=== PATIENT | male | born 1985 | race Two or more races ===

== ENCOUNTER → 2017-11-09 | Outpatient (CLI) | payer OTHER ==
[2017-11-10 12:20] LABS: RUBEOLA (MEASLES) IGG >300.0 AU/mL (Immune >29.9)
== END | disposition home or self-care (01) ==
LOC: EMPHLTH 09:20
PROVIDERS: ATTEND Internal Medicine
DX: Z02.1 Encounter for pre-employment examination (principal)
CPT/HCPCS: 86706; 86735; 86762; 86765; 86787

== ENCOUNTER → 2017-11-22 | Outpatient (CLI) | payer OTHER | END | disposition home or self-care (01) | LOC: EMPHLTH 12:11 | PROVIDERS: ATTEND Internal Medicine | DX: R76.11 Nonspecific reaction to tuberculin skin test without active tuberculosis (principal) ==

== ENCOUNTER 2018-10-01 22:54 | Emergency (ER) | payer OTHER ==
[~2018-10-01] VITALS: Ht 182.9 cm; Wt 113.6 kg
[2018-10-01 23:08] VITALS: BP 139/92
[2018-10-02] MEDS ORDERED: CEPHALEXIN MONOHYDRATE 500 MG CAPSULE PO ONE
== END 2018-10-02 00:13 | disposition home or self-care (01) ==
LOC: EMS 22:55
DX: L03.032 Cellulitis of left toe (principal)

== ENCOUNTER 2019-07-27 22:31 | Emergency (ER) | payer OTHER ==
[~2019-07-27] VITALS: Ht 365.8 cm; Wt 118.0 kg
[2019-07-27] MEDS ORDERED: ACETAMINOPHEN 325 MG TABLET PO ONE (23:15)
[2019-07-27] MEDS ORDERED: LIDOCAINE 5% TRANSDERMAL PATCH TD ONE (23:15)
[2019-07-27] MEDS ORDERED: IBUPROFEN 400 MG TABLET PO ONE (23:15)
[2019-07-28 00:05] VITALS: BP 140/80
== END 2019-07-28 00:40 | disposition home or self-care (01) ==
LOC: EMS 22:32
DX: S50.02XA Contusion of left elbow, initial encounter (principal); W18.39XA Other fall on same level, initial encounter; Y93.89 Activity, other specified; Y92.89 Other specified places as the place of occurrence of the external cause; Y99.8 Other external cause status

== ENCOUNTER 2019-08-08 09:57 | Emergency (ER) | payer OTHER ==
[~2019-08-08] VITALS: Ht 182.9 cm; Wt 113.6 kg
[2019-08-08 11:10] VITALS: BP 134/82
== END 2019-08-08 11:13 | disposition home or self-care (01) ==
LOC: EEVIPCON 09:58 → EMS 09:58
DX: J20.9 Acute bronchitis, unspecified (principal)

== ENCOUNTER 2019-10-06 04:33 | Emergency (ER) | payer OTHER ==
[~2019-10-06] VITALS: Ht 182.9 cm; Wt 122.7 kg
[2019-10-06] MEDS ORDERED: ONDANSETRON HCL 4 MG TABLET PO ONE (05:00)
[2019-10-06 05:15] LABS: BASOPHILS % (AUTO) 0.8 % (0.0-2.0); EOSINOPHILS % (AUTO) 2.6 % (1.0-6.0); HEMATOCRIT 44.8 % (41-53); HEMOGLOBIN 15.4 g/dL (13.5-17.5); LYMPHOCYTES # (AUTO) 2.6 K/uL (1.0-4.8); LYMPHOCYTES % (AUTO) 33.5 % (22.0-44.0); MEAN CORPUSCULAR HEMOGLOBIN 30.8 pg (26.0-34.0); MEAN CORPUSCULAR HGB CONC 34.4 G/dL (31.0-37.0); MEAN CORPUSCULAR VOLUME 90 fL (80-100); MONOCYTES # (AUTO) 0.6 K/uL (0.1-1.0); MONOCYTES % (AUTO) 7.7 % (2.0-9.0); NEUTROPHILS # (AUTO) 4.3 K/uL (1.8-7.7); NEUTROPHILS % (AUTO) 55.4 % (40.0-70.0); PLATELET COUNT (AUTO) 254 K/uL (150-450); RED BLOOD CELL COUNT(AUTO) 4.99 MIL/uL (4.50-5.90); RED CELL DISTRIBUTION WIDTH 13.3 % (11.5-14.5)
[2019-10-06 05:36] LABS: ALANINE AMINOTRANSFERASE 32 U/L (12-78); ALBUMIN 3.9 g/dL (3.4-5.0); ALKALINE PHOSPHATASE 61 U/L (46-116); ASPARTATE AMINOTRANSFERASE 13 U/L (15-37); BILIRUBIN,TOTAL 0.1 mg/dL (0.1-1.0); CARBON DIOXIDE 29 mmol/L (22-29); CHLORIDE 98 mmol/L (98-107); CREATININE 1.06 mg/dL (0.60-1.30); GLOMERULAR FILTR. RATE CALC > 60 mL/min (>60); GLUCOSE,RANDOM 115 mg/dL (70-110); LIPASE 102 U/L (73-393); POTASSIUM 3.4 mmol/L (3.5-5.1); SODIUM SERUM 139 mmol/L (136-145); TOTAL PROTEIN, SERUM 7.2 g/dL (6.4-8.2); UREA NITROGEN, BLOOD 18 mg/dL (7-18)
[2019-10-06 05:37] LABS: ANION GAP 12 mmol/L (8-16)
[2019-10-06] MEDS ORDERED: HydrOXYzine HCL 25 MG TABLET PO ONE (05:45)
[2019-10-06 05:47] VITALS: BP 155/96
== END 2019-10-06 05:59 | disposition home or self-care (01) ==
LOC: EMS 04:33
DX: R11.2 Nausea with vomiting, unspecified (principal); R09.89 Other specified symptoms and signs involving the circulatory and respiratory systems
CPT/HCPCS: 36415; 71045; 80053; 83690; 84484; 85025; 93005; 99285; Q0162

== ENCOUNTER 2019-10-12 22:43 | Emergency (ER) | payer OTHER ==
[~2019-10-12] VITALS: Ht 182.9 cm; Wt 118.2 kg
[2019-10-12] MEDS ORDERED: SODIUM CHLORIDE 0.9% 1,000 ML IV ONE (23:45)
[2019-10-12 23:59] LABS: BASOPHILS % (AUTO) 0.8 % (0.0-2.0); HEMATOCRIT 44.7 % (41-53); HEMOGLOBIN 15.1 g/dL (13.5-17.5); LYMPHOCYTES % (AUTO) 42.8 % (22.0-44.0); MEAN CORPUSCULAR HEMOGLOBIN 30.3 pg (26.0-34.0); MEAN CORPUSCULAR HGB CONC 33.7 G/dL (31.0-37.0); MEAN CORPUSCULAR VOLUME 90 fL (80-100); MONOCYTES # (AUTO) 0.5 K/uL (0.1-1.0); MONOCYTES % (AUTO) 6.4 % (2.0-9.0); NEUTROPHILS # (AUTO) 3.4 K/uL (1.8-7.7); PLATELET COUNT (AUTO) 274 K/uL (150-450); RED BLOOD CELL COUNT(AUTO) 4.98 MIL/uL (4.50-5.90); RED CELL DISTRIBUTION WIDTH 13.1 % (11.5-14.5)
[2019-10-13] MEDS ORDERED: SODIUM CHLORIDE 0.9% 100 ML ONE ×2 (00:07→01:17)
[2019-10-13] MEDS ORDERED: IOVERSOL 350 MG/ML 100 ML VIAL ONE (00:07)
[2019-10-13 00:11] LABS: ANION GAP 8 mmol/L (8-16); CALCIUM, TOTAL 8.9 mg/dL (8.8-10.5); CARBON DIOXIDE 29 mmol/L (22-29); CHLORIDE 104 mmol/L (98-107); CREATININE 1.06 mg/dL (0.60-1.30); GLOMERULAR FILTR. RATE CALC > 60 mL/min (>60); GLUCOSE,RANDOM 93 mg/dL (70-110); POTASSIUM 3.5 mmol/L (3.5-5.1); SODIUM SERUM 141 mmol/L (136-145); UREA NITROGEN, BLOOD 24 mg/dL (7-18)
[2019-10-13 02:00] VITALS: BP 128/74
== END 2019-10-13 02:45 | disposition home or self-care (01) ==
LOC: EMS 22:43
DX: R09.89 Other specified symptoms and signs involving the circulatory and respiratory systems (principal)
CPT/HCPCS: 36415; 70491; 80048; 85025; 99285; J7030; J7050; Q9967

== ENCOUNTER 2019-12-06 19:59 | Emergency (ER) | payer OTHER ==
[~2019-12-06] VITALS: Ht 182.9 cm; Wt 122.7 kg
[2019-12-07] MEDS ORDERED: HYDROCODONE/ACETAMINOPHEN 5-325 MG TABLET PO ONE (00:45)
[2019-12-07 00:48] VITALS: BP 132/78
== END 2019-12-07 01:00 | disposition home or self-care (01) ==
LOC: EMS 19:59
DX: S62.325A Displaced fracture of shaft of fourth metacarpal bone, left hand, initial encounter for closed fracture (principal); Y04.0XXA Assault by unarmed brawl or fight, initial encounter; Y93.89 Activity, other specified; Y92.89 Other specified places as the place of occurrence of the external cause; Y99.0 Civilian activity done for income or pay

== ENCOUNTER 2019-12-14 22:34 | Emergency (ER) | payer OTHER ==
[~2019-12-14] VITALS: Ht 182.9 cm; Wt 122.7 kg
[2019-12-14 23:48] VITALS: BP 150/79
[2019-12-15] MEDS ORDERED: NYSTATIN 30 GM CREAM TP ONE
== END 2019-12-15 01:54 | disposition home or self-care (01) ==
LOC: EMS 22:35
DX: M79.642 Pain in left hand (principal); Z46.89 Encounter for fitting and adjustment of other specified devices

== ENCOUNTER 2020-02-21 15:02 | Emergency (ER) | payer OTHER ==
[~2020-02-21] VITALS: Ht 182.9 cm; Wt 118.6 kg
[2020-02-21 17:23] VITALS: BP 109/74
== END 2020-02-21 15:39 | disposition home or self-care (01) ==
LOC: EMS 15:06
DX: Z03.818 Encounter for observation for suspected exposure to other biological agents ruled out (principal)
CPT/HCPCS: 99283; U0003

== ENCOUNTER 2020-11-18 19:31 | Emergency (ER) | payer OTHER ==
[~2020-11-18] VITALS: Ht 182.9 cm; Wt 123.2 kg
[2020-11-18] MEDS ORDERED: PERTUSS(ACELL),DIPH,TET VAC/PF 0.5 ML SYRINGE IM. ONE (20:45)
[2020-11-18 20:50] VITALS: BP 135/77
== END 2020-11-18 21:30 | disposition home or self-care (01) ==
LOC: EMS 19:31
DX: S01.111A Laceration without foreign body of right eyelid and periocular area, initial encounter (principal); W21.03XA Struck by baseball, initial encounter; Y93.89 Activity, other specified; Y92.89 Other specified places as the place of occurrence of the external cause; Y99.8 Other external cause status
CPT/HCPCS: 90471; 90715; 99283

== ENCOUNTER 2021-01-25 10:12 | Emergency (ER) | payer OTHER ==
[~2021-01-25] VITALS: Ht 182.9 cm; Wt 120.5 kg
[2021-01-25 10:55] LABS: BASOPHILS % (AUTO) 0.8 % (0.0-2.0); EOSINOPHILS % (AUTO) 2.5 % (1.0-6.0); HEMATOCRIT 43.7 % (41-53); HEMOGLOBIN 14.8 g/dL (13.5-17.5); LYMPHOCYTES # (AUTO) 2.4 K/uL (1.0-4.8); LYMPHOCYTES % (AUTO) 43.7 % (22.0-44.0); MEAN CORPUSCULAR HEMOGLOBIN 30.9 pg (26.0-34.0); MEAN CORPUSCULAR HGB CONC 33.9 G/dL (31.0-37.0); MEAN CORPUSCULAR VOLUME 91 fL (80-100); MONOCYTES # (AUTO) 0.4 K/uL (0.1-1.0); MONOCYTES % (AUTO) 8.2 % (2.0-9.0); NEUTROPHILS # (AUTO) 2.5 K/uL (1.8-7.7); NEUTROPHILS % (AUTO) 44.8 % (40.0-70.0); PLATELET COUNT (AUTO) 259 K/uL (150-450); RED BLOOD CELL COUNT(AUTO) 4.79 MIL/uL (4.50-5.90); RED CELL DISTRIBUTION WIDTH 13.5 % (11.5-14.5)
[2021-01-25 11:04] LABS: ANION GAP 10 mmol/L (8-16); CALCIUM, TOTAL 8.6 mg/dL (8.8-10.5); CARBON DIOXIDE 27 mmol/L (22-29); CHLORIDE 104 mmol/L (98-107); CREATININE 1.01 mg/dL (0.60-1.30); GLOMERULAR FILTR. RATE CALC > 60 mL/min (>60); GLUCOSE,RANDOM 106 mg/dL (70-110); POTASSIUM 3.9 mmol/L (3.5-5.1); SODIUM SERUM 141 mmol/L (136-145); UREA NITROGEN, BLOOD 14 mg/dL (7-18)
[2021-01-25 11:09] LABS: ALANINE AMINOTRANSFERASE 41 U/L (12-78); ALBUMIN 3.8 g/dL (3.4-5.0); ALKALINE PHOSPHATASE 57 U/L (46-116); ASPARTATE AMINOTRANSFERASE 26 U/L (15-37); BILIRUBIN,TOTAL 0.3 mg/dL (0.1-1.0); TOTAL PROTEIN, SERUM 7.2 g/dL (6.4-8.2)
[2021-01-25 11:28] VITALS: BP 128/95
== END 2021-01-25 12:10 | disposition home or self-care (01) ==
LOC: EMS 10:24
DX: K21.9 Gastro-esophageal reflux disease without esophagitis (principal)
CPT/HCPCS: 71045; 80053; 84484; 85025; 93005; 99285; 36415-L1; 36415-TC

== ENCOUNTER 2021-04-09 17:15 | Emergency (ER) | payer OTHER ==
[~2021-04-09] VITALS: Ht 182.9 cm; Wt 122.7 kg
[2021-04-09] MEDS ORDERED: MAGN250T9 PO (17:33)
[2021-04-09] MEDS ORDERED: ZINC220C14 PO (17:33)
[2021-04-09] MEDS ORDERED: CHOL400T56 PO (17:33)
[2021-04-09] MEDS ORDERED: ASCO500 PO (17:33)
[2021-04-09] MEDS ORDERED: BLUE500T PO (17:33)
[2021-04-09 18:32] LABS: BASOPHILS % (AUTO) 0.8 % (0.0-2.0); HEMATOCRIT 45.9 % (41-53); HEMOGLOBIN 15.5 g/dL (13.5-17.5); LYMPHOCYTES # (AUTO) 2.2 K/uL (1.0-4.8); LYMPHOCYTES % (AUTO) 35.6 % (22.0-44.0); MEAN CORPUSCULAR HEMOGLOBIN 30.6 pg (26.0-34.0); MEAN CORPUSCULAR HGB CONC 33.7 G/dL (31.0-37.0); MEAN CORPUSCULAR VOLUME 91 fL (80-100); MONOCYTES # (AUTO) 0.5 K/uL (0.1-1.0); MONOCYTES % (AUTO) 8.7 % (2.0-9.0); NEUTROPHILS # (AUTO) 3.2 K/uL (1.8-7.7); NEUTROPHILS % (AUTO) 51.9 % (40.0-70.0); PLATELET COUNT (AUTO) 301 K/uL (150-450); RED BLOOD CELL COUNT(AUTO) 5.05 MIL/uL (4.50-5.90); RED CELL DISTRIBUTION WIDTH 13.1 % (11.5-14.5)
[2021-04-09 18:41] VITALS: BP 136/86
[2021-04-09 19:05] LABS: ANION GAP 6 mmol/L (8-16); CALCIUM, TOTAL 9.1 mg/dL (8.8-10.5); CARBON DIOXIDE 28 mmol/L (22-29); CHLORIDE 106 mmol/L (98-107); CREATININE 1.12 mg/dL (0.60-1.30); GLOMERULAR FILTR. RATE CALC > 60 mL/min (>60); GLUCOSE,RANDOM 93 mg/dL (70-110); POTASSIUM 3.9 mmol/L (3.5-5.1); SODIUM SERUM 140 mmol/L (136-145); UREA NITROGEN, BLOOD 15 mg/dL (7-18)
[2021-04-09 19:12] LABS: ALANINE AMINOTRANSFERASE 36 U/L (12-78); ALBUMIN 4.2 g/dL (3.4-5.0); ALKALINE PHOSPHATASE 63 U/L (46-116); ASPARTATE AMINOTRANSFERASE 20 U/L (15-37); BILIRUBIN,TOTAL 0.3 mg/dL (0.1-1.0)
== END 2021-04-09 20:32 | disposition home or self-care (01) ==
LOC: EMS 17:19
DX: R51.9 Headache, unspecified (principal); Z79.899 Other long term (current) drug therapy
CPT/HCPCS: 70450; 80053; 85025; 99284

== ENCOUNTER → 2021-10-29 | Outpatient (CLI) | payer OTHER ==
[~2021-10-29] MED LIST: ASCO500 PO; BLUE500T PO; CHOL400T56 PO; MAGN250T9 PO; ZINC220C14 PO
== END | disposition home or self-care (01) ==
LOC: RADMN 13:21
PROVIDERS: ATTEND Internal Medicine
DX: R76.11 Nonspecific reaction to tuberculin skin test without active tuberculosis (principal)
CPT/HCPCS: 71045

== ENCOUNTER 2021-11-27 14:37 | Emergency (ER) | payer OTHER ==
[~2021-11-27] VITALS: Ht 182.9 cm; Wt 116.8 kg
[2021-11-27 14:43] VITALS: BP 143/80
[2021-11-27] MEDS ORDERED: POVIDONE-IODINE 10% 15 ML SOLUTION UD TP ONE (15:00)
[2021-11-27] MEDS ORDERED: PERTUSS(ACELL),DIPH,TET VAC/PF 0.5 ML SYRINGE IM. ONE (15:00)
[2021-11-27] MEDS ORDERED: AMOX TR/POT CLAV 875 MG/125 MG TABLET PO ONE (15:00)
[2021-11-27] MEDS ORDERED: AMOX1TAB16 PO (16:03)
[2021-11-28 08:06] LABS: HEPATITIS C AB (EIA) <0.1 s/co ratio (0.0-0.9)
== END 2021-11-27 16:00 | disposition home or self-care (01) ==
LOC: EMS 14:37
DX: S61.250A Open bite of right index finger without damage to nail, initial encounter (principal); W50.3XXA Accidental bite by another person, initial encounter; Y93.89 Activity, other specified; Y92.238 Other place in hospital as the place of occurrence of the external cause; Y99.0 Civilian activity done for income or pay
CPT/HCPCS: 84460; 86706; 86803; 87340; 90471; 90715; 99283

== ENCOUNTER → 2022-01-08 | Outpatient (CLI) | payer OTHER ==
[~2022-01-08] MED LIST changes: +AMOX1TAB16 PO
[2022-01-09 08:06] LABS: HEPATITIS C AB (EIA) 0.1 s/co ratio (0.0-0.9)
== END | disposition home or self-care (01) ==
LOC: LABMN 14:09
PROVIDERS: ATTEND Internal Medicine
DX: Z77.21 Contact with and (suspected) exposure to potentially hazardous body fluids (principal)
CPT/HCPCS: 84460; 86706; 86803; 87340

== ENCOUNTER 2022-01-22 22:47 | Emergency (ER) | payer OTHER ==
[~2022-01-22] VITALS: Ht 182.9 cm; Wt 113.6 kg
[2022-01-22 22:57] VITALS: BP 125/76
[2022-01-23 00:13] LABS: BASOPHILS % (AUTO) 0.9 % (0.0-2.0); HEMATOCRIT 42.4 % (41-53); HEMOGLOBIN 14.6 g/dL (13.5-17.5); LYMPHOCYTES # (AUTO) 2.8 K/uL (1.0-4.8); LYMPHOCYTES % (AUTO) 49.5 % (22.0-44.0); MEAN CORPUSCULAR HEMOGLOBIN 31.1 pg (26.0-34.0); MEAN CORPUSCULAR HGB CONC 34.5 G/dL (31.0-37.0); MEAN CORPUSCULAR VOLUME 90 fL (80-100); MONOCYTES # (AUTO) 0.5 K/uL (0.1-1.0); MONOCYTES % (AUTO) 8.2 % (2.0-9.0); NEUTROPHILS # (AUTO) 2.1 K/uL (1.8-7.7); NEUTROPHILS % (AUTO) 37.4 % (40.0-70.0); PLATELET COUNT (AUTO) 256 K/uL (150-450); RED BLOOD CELL COUNT(AUTO) 4.69 MIL/uL (4.50-5.90); RED CELL DISTRIBUTION WIDTH 13.1 % (11.5-14.5)
[2022-01-23 00:20] LABS: ANION GAP 5 mmol/L (8-16); CALCIUM, TOTAL 8.8 mg/dL (8.8-10.5); CARBON DIOXIDE 30 mmol/L (22-29); CHLORIDE 102 mmol/L (98-107); CREATININE 1.07 mg/dL (0.60-1.30); GLOMERULAR FILTR. RATE CALC > 60 mL/min (>60); GLUCOSE,RANDOM 99 mg/dL (70-110); SODIUM SERUM 137 mmol/L (136-145); UREA NITROGEN, BLOOD 22 mg/dL (7-18)
[2022-01-23 00:26] LABS: ALANINE AMINOTRANSFERASE 39 U/L (12-78); ALKALINE PHOSPHATASE 60 U/L (46-116); ASPARTATE AMINOTRANSFERASE 31 U/L (15-37); BILIRUBIN,TOTAL 0.3 mg/dL (0.1-1.0)
[2022-01-23] MEDS ORDERED: LIDO700A15 TP (02:07)
[2022-01-23] MEDS ORDERED: IBUP-2070 PO (02:07)
== END 2022-01-23 02:10 | disposition home or self-care (01) ==
LOC: EMS 22:59
DX: R07.89 Other chest pain (principal); Z79.899 Other long term (current) drug therapy
CPT/HCPCS: 71101; 80053; 85025; 99284

== ENCOUNTER → 2022-01-27 | Outpatient (CLI) | payer OTHER ==
[~2022-01-27] MED LIST changes: +IBUP-2070 PO; +LIDO700A15 TP
[2022-01-28 11:07] LABS: HEPATITIS A ANTIBODY TOTAL Positive (Negative); HEPATITIS C AB (EIA) 0.2 s/co ratio (0.0-0.9); HIV 1-2 SCREEN 4TH GEN W/RFLX Non Reactive (Non Reactive)
== END | disposition home or self-care (01) ==
LOC: LABMN 14:34
PROVIDERS: ATTEND Internal Medicine
DX: Z77.21 Contact with and (suspected) exposure to potentially hazardous body fluids (principal)
CPT/HCPCS: 86704; 86708; 86803; 87340; 87389

== ENCOUNTER 2022-03-28 15:17 | Emergency (ER) | payer OTHER ==
[~2022-03-28] VITALS: Ht 15.2 cm; Wt 102.8 kg
[2022-03-28 15:18] VITALS: BP 133/84
[2022-03-28] MEDS ORDERED: CYAN100T45 PO (15:24)
[2022-03-28] MEDS ORDERED: ACETAMINOPHEN 325 MG TABLET PO ONE (15:45)
[2022-03-28] MEDS ORDERED: FAMOTIDINE 20 MG TABLET PO ONE (15:45)
== END 2022-03-28 17:23 | disposition home or self-care (01) ==
LOC: EMS 15:17
DX: R07.89 Other chest pain (principal); K21.9 Gastro-esophageal reflux disease without esophagitis
CPT/HCPCS: 71045; 93005; 99283; 99284

== ENCOUNTER 2023-01-27 22:39 | Emergency (ER) | payer OTHER ==
[~2023-01-27] VITALS: Ht 182.9 cm; Wt 120.5 kg
[~2023-01-27 22:39] MED LIST changes: -AMOX1TAB16 PO; -BLUE500T PO; +CYAN100T45 PO; +IBUP-1492 PO; -IBUP-2070 PO; -LIDO700A15 TP; -ZINC220C14 PO; +ZINC50CA3 PO
[2023-01-27 23:01] VITALS: BP 146/91; PULSE 97; RESP 16; TEMP 98.4
[2023-01-27] MEDS ORDERED: IBUP-1493 PO (23:28)
[2023-01-27] MEDS ORDERED: KETOROLAC TROMETHAMINE 60 MG/2 ML VIAL IM ONE (23:30)
[2023-01-27] MEDS ORDERED: KETOROLAC TROMETHAMINE 30 MG/ML VIAL IM ONE (23:30)
== END 2023-01-27 23:45 | disposition home or self-care (01) ==
LOC: EMS 22:40
DX: S56.912A Strain of unspecified muscles, fascia and tendons at forearm level, left arm, initial encounter (principal); K21.9 Gastro-esophageal reflux disease without esophagitis; X58.XXXA Exposure to other specified factors, initial encounter; Y93.89 Activity, other specified; Y92.89 Other specified places as the place of occurrence of the external cause; Y99.8 Other external cause status
CPT/HCPCS: 99283; 96372; J1885

== ENCOUNTER → 2023-09-09 | Outpatient (CLI) | payer OTHER ==
[~2023-09-09] MED LIST changes: +IBUP-1493 PO
[2023-09-09 09:38] LABS: BASOPHILS % (AUTO) 1.1 % (0.0-2.0); EOSINOPHILS % (AUTO) 3.3 % (1.0-6.0); HEMATOCRIT 46.9 % (41-53); HEMOGLOBIN 15.9 g/dL (13.5-17.5); LYMPHOCYTES # (AUTO) 2.3 K/uL (1.0-4.8); LYMPHOCYTES % (AUTO) 41.7 % (22.0-44.0); MEAN CORPUSCULAR HEMOGLOBIN 30.6 pg (26.0-34.0); MEAN CORPUSCULAR HGB CONC 33.9 G/dL (31.0-37.0); MEAN CORPUSCULAR VOLUME 90 fL (80-100); MONOCYTES # (AUTO) 0.4 K/uL (0.1-1.0); MONOCYTES % (AUTO) 7.4 % (2.0-9.0); NEUTROPHILS # (AUTO) 2.6 K/uL (1.8-7.7); NEUTROPHILS % (AUTO) 46.5 % (40.0-70.0); PLATELET COUNT (AUTO) 290 K/uL (150-450); RED BLOOD CELL COUNT(AUTO) 5.21 MIL/uL (4.50-5.90); RED CELL DISTRIBUTION WIDTH 13.2 % (11.5-14.5); WHITE BLOOD COUNT (AUTO) 5.6 K/uL (4.5-11.0)
[2023-09-09 09:46] LABS: HEMOGLOBIN A1C 5.3 % (3.8-5.6)
[2023-09-09 10:09] LABS: ALANINE AMINOTRANSFERASE 38 U/L (12-78); ALBUMIN 4.1 g/dL (3.4-5.0); ALKALINE PHOSPHATASE 55 U/L (46-116); ANION GAP 8 mmol/L (8-16); ASPARTATE AMINOTRANSFERASE 27 U/L (15-37); BILIRUBIN,TOTAL 0.5 mg/dL (0.1-1.0); CALCIUM, TOTAL 9.2 mg/dL (8.8-10.5); CARBON DIOXIDE 29 mmol/L (22-29); CHLORIDE 103 mmol/L (98-107); CHOL/HDL RATIO 4.4 (4.2-7.3); CHOLESTEROL 202 mg/dL (131-200); CREATININE 0.99 mg/dL (0.60-1.30); GLOMERULAR FILTR. RATE CALC > 60 mL/min (>60); GLUCOSE,RANDOM 100 mg/dL (70-110); HDL CHOLESTEROL 46 mg/dL (40-60); LDL CHOL (CALC.) 129 mg/dL (0-130); POTASSIUM 4.1 mmol/L (3.5-5.1); SODIUM SERUM 140 mmol/L (136-145); THYROID STIMULATING HORMONE 1.73 uIU/mL (0.36-3.74); TOTAL PROTEIN, SERUM 7.4 g/dL (6.4-8.2); TRIGLYCERIDES 136 mg/dL (15-150); UREA NITROGEN, BLOOD 18 mg/dL (7-18)
[2023-09-09 10:12] LABS: VITAMIN B12 LEVEL 1083 pg/mL (211-911); VITAMIN D,TOTAL (25-0H) 39 ng/mL (30-100)
[2023-09-09 10:37] LABS: FOLATE SERUM > 24.0 ng/mL (5.4-)
== END | disposition home or self-care (01) ==
LOC: LABMN 09:03
PROVIDERS: ATTEND Internal Medicine Geriatric Medicine
DX: Z00.00 Encounter for general adult medical examination without abnormal findings (principal)
CPT/HCPCS: 80053; 80061; 82306; 82607; 82746; 83036; 84443; 85025

== ENCOUNTER 2023-10-29 20:30 | Emergency (ER) | payer OTHER ==
[~2023-10-29] VITALS: Ht 182.9 cm; Wt 123.6 kg
[2023-10-29 22:15] VITALS: BP 132/74; PULSE 79; RESP 17; TEMP 97.3
== END 2023-10-29 22:42 | disposition home or self-care (01) ==
LOC: EMS 20:41
DX: S80.02XA Contusion of left knee, initial encounter (principal); X58.XXXA Exposure to other specified factors, initial encounter; Y93.02 Activity, running; Y92.89 Other specified places as the place of occurrence of the external cause; Y99.8 Other external cause status
CPT/HCPCS: 99281; Z7502

== ENCOUNTER 2024-07-27 21:07 | Emergency (ER) | payer OTHER ==
[~2024-07-27] VITALS: Ht 185.4 cm; Wt 86.4 kg
[2024-07-27 21:59] VITALS: BP 133/82; PULSE 82; RESP 18; TEMP 98; O2SAT 99
== END 2024-07-27 23:23 | disposition left against medical advice (07) ==
LOC: EMS 21:09
DX: M79.641 Pain in right hand (principal); Z53.21 Procedure and treatment not carried out due to patient leaving prior to being seen by health care provider
CPT/HCPCS: 73130-TC

== ENCOUNTER 2024-09-19 06:59 | Day surgery (SDC) | payer OTHER ==
[~2024-09-19] VITALS: Ht 182.9 cm; Wt 120.5 kg
[~2024-09-19 06:59] MED LIST changes: +GLYCOPYRROLATE 0.2 MG/ML VIAL ONE; -IBUP-1492 PO; -IBUP-1493 PO; +LIDOCAINE/PF 2% 5 ML SYRINGE IVP ONE; +PROPOFOL 1% 20 ML VIAL IVP ONE; +SODIUM CHLORIDE 0.9% 1,000 ML ONE
[2024-09-19] MEDS: SODIUM CHLORIDE 0.9% 1,000 ML IV ONE (07:28)
== END 2024-09-19 11:00 | disposition home or self-care (01) ==
LOC: SURGERY 06:59
PROVIDERS: ATTEND Internal Medicine
DX: R12 Heartburn (principal); K29.50 Unspecified chronic gastritis without bleeding
CPT/HCPCS: 43239; 88305; J2704; J3490 ×2; J7030

== ENCOUNTER → 2024-11-23 | Outpatient (CLI) | payer OTHER ==
[~2024-11-23] MED LIST changes: -GLYCOPYRROLATE 0.2 MG/ML VIAL ONE; -LIDOCAINE/PF 2% 5 ML SYRINGE IVP ONE; -PROPOFOL 1% 20 ML VIAL IVP ONE; -SODIUM CHLORIDE 0.9% 1,000 ML ONE
[2024-11-23 19:51] LABS: BASOPHILS % (AUTO) 0.9 % (0.0-2.0); HEMATOCRIT 43.7 % (41-53); LYMPHOCYTES # (AUTO) 2.4 K/uL (1.0-4.8); LYMPHOCYTES % (AUTO) 41.6 % (22.0-44.0); MEAN CORPUSCULAR HEMOGLOBIN 30.7 pg (26.0-34.0); MEAN CORPUSCULAR HGB CONC 34.4 G/dL (31.0-37.0); MEAN CORPUSCULAR VOLUME 89 fL (80-100); MONOCYTES # (AUTO) 0.5 K/uL (0.1-1.0); MONOCYTES % (AUTO) 8.6 % (2.0-9.0); NEUTROPHILS # (AUTO) 2.7 K/uL (1.8-7.7); NEUTROPHILS % (AUTO) 45.9 % (40.0-70.0); PLATELET COUNT (AUTO) 285 K/uL (150-450); RED BLOOD CELL COUNT(AUTO) 4.89 MIL/uL (4.50-5.90); RED CELL DISTRIBUTION WIDTH 13.3 % (11.5-14.5); WHITE BLOOD COUNT (AUTO) 5.9 K/uL (4.5-11.0)
[2024-11-23 20:03] LABS: ALANINE AMINOTRANSFERASE 49 U/L (12-78); ALBUMIN 3.9 g/dL (3.4-5.0); ALKALINE PHOSPHATASE 58 U/L (46-116); ANION GAP 5 mmol/L (8-16); ASPARTATE AMINOTRANSFERASE 32 U/L (15-37); BILIRUBIN,TOTAL 0.4 mg/dL (0.1-1.0); CALCIUM, TOTAL 8.9 mg/dL (8.8-10.5); CARBON DIOXIDE 31 mmol/L (22-29); CHLORIDE 105 mmol/L (98-107); CREATININE 1.06 mg/dL (0.60-1.30); GLOMERULAR FILTR. RATE CALC > 60 mL/min (>60); GLUCOSE,RANDOM 91 mg/dL (70-110); POTASSIUM 3.9 mmol/L (3.5-5.1); SODIUM SERUM 141 mmol/L (136-145); TOTAL PROTEIN, SERUM 7.3 g/dL (6.4-8.2); UREA NITROGEN, BLOOD 23 mg/dL (7-18)
== END | disposition home or self-care (01) ==
LOC: LABMN 15:54
PROVIDERS: ATTEND Internal Medicine Geriatric Medicine
DX: K29.70 Gastritis, unspecified, without bleeding (principal); B96.81 Helicobacter pylori [H. pylori] as the cause of diseases classified elsewhere; R10.11 Right upper quadrant pain
CPT/HCPCS: 80053; 85025; 87338

== ENCOUNTER 2025-05-04 23:35 | Emergency (ER) | payer OTHER ==
[~2025-05-04] VITALS: Ht 182.9 cm; Wt 120.5 kg
[2025-05-05] MEDS ORDERED: SULF-261 PO (01:09)
[2025-05-05 01:10] VITALS: BP 119/67; PULSE 72; RESP 18; TEMP 98.3; O2SAT 99
[2025-05-05] MEDS: SULFAMETHOX/TRIMETH DS 800-160 MG/TABLET PO ONE (02:01)
== END 2025-05-05 01:35 | disposition home or self-care (01) ==
LOC: EMS 23:35
DX: L03.011 Cellulitis of right finger (principal)
CPT/HCPCS: 99283

== ENCOUNTER 2025-06-06 20:07 | Emergency (ER) | payer OTHER ==
[~2025-06-06] VITALS: Ht 182.9 cm; Wt 120.5 kg
[~2025-06-06 20:07] MED LIST changes: +SULF1TAB94 PO
[2025-06-06 20:19] VITALS: BP 143/85; PULSE 104; RESP 16; TEMP 98.6; O2SAT 97
[2025-06-06 20:42] LABS: COVID AG,FIA SOURCE NASAL SWAB
[2025-06-06 20:59] LABS: INFLUENZA TYPE A NEGATIVE FOR TYPE A (NEGATIVE); INFLUENZA TYPE B NEGATIVE FOR TYPE B (NEGATIVE); SARS-COV2 (COVID) ANTIGEN,FIA Negative (Negative)
== END 2025-06-06 21:31 | disposition home or self-care (01) ==
LOC: EMS 20:07
DX: R53.83 Other fatigue (principal); R53.1 Weakness; R11.10 Vomiting, unspecified; R42 Dizziness and giddiness; K21.9 Gastro-esophageal reflux disease without esophagitis; Z79.899 Other long term (current) drug therapy; Z20.822 Contact with and (suspected) exposure to COVID-19
CPT/HCPCS: 87804; 99283